=== PATIENT | male | born 1990 | race Two or more races ===

== ENCOUNTER 2021-02-11 14:47 | Emergency (ER) | payer MEDICAID ==
[~2021-02-11] VITALS: Ht 172.7 cm; Wt 92.1 kg
[2021-02-11 14:47] VITALS: BP 140/102
[~2021-02-11 14:47] MED LIST: LEVA15HF4 IH
[2021-02-11] MEDS ORDERED: IPRA3AMP23 IH (15:13)
--- NOTE | 2021-02-11 15:24 | NUR ---
Patient discharged to home in stable condition. Written and verbal after care instructions given. Patient verbalizes understanding of instruction.
== END 2021-02-11 15:24 | disposition home or self-care (01) ==
LOC: ER 14:55
DX: F15.90 Other stimulant use, unspecified, uncomplicated (principal); J45.909 Unspecified asthma, uncomplicated

== ENCOUNTER 2023-08-19 14:59 | Emergency (ER) | payer MEDICAID ==
[~2023-08-19] VITALS: Ht 172.7 cm; Wt 81.6 kg
[~2023-08-19 14:59] MED LIST changes: +IPRA3AMP23 IH
[2023-08-19] MEDS ORDERED: BUPR1FIL SL (16:28)
[2023-08-19] MEDS ORDERED: ONDA4TAB5 PO (16:30)
[2023-08-19] MEDS ORDERED: BUPR1FIL3 SL (16:37)
[2023-08-19 16:54] VITALS: BP 151/97; TEMP 98.1; O2SAT 99
== END 2023-08-19 16:54 | disposition home or self-care (01) ==
LOC: ER 15:09
DX: F11.23 Opioid dependence with withdrawal (principal); Z76.0 Encounter for issue of repeat prescription; J45.909 Unspecified asthma, uncomplicated; Z79.899 Other long term (current) drug therapy

== ENCOUNTER 2023-09-05 10:00 | Emergency (ER) | payer MEDICAID ==
[~2023-09-05] VITALS: Ht 172.7 cm; Wt 81.6 kg
[~2023-09-05 10:00] MED LIST changes: +BUPR1FIL3 SL; +ONDA4TAB5 PO
[2023-09-05 10:16] VITALS: BP 145/65; TEMP 98; O2SAT 98
[2023-09-05] MEDS ORDERED: BUPR1FIL3 SL (10:21)
== END 2023-09-05 10:37 | disposition home or self-care (01) ==
LOC: ER 10:00
DX: J45.909 Unspecified asthma, uncomplicated (principal); Z76.0 Encounter for issue of repeat prescription; Z79.899 Other long term (current) drug therapy

== ENCOUNTER 2023-09-09 08:43 | Emergency (ER) | payer MEDICAID ==
[~2023-09-09] VITALS: Ht 172.7 cm; Wt 81.2 kg
[~2023-09-09 08:43] MED LIST changes: -BUPR1FIL3 SL
[2023-09-09 08:50] VITALS: BP 140/93; TEMP 98.3
[2023-09-09] MEDS ORDERED: BUPR1FIL3 SL (09:21)
[2023-09-09 09:29] VITALS: O2SAT 99
== END 2023-09-09 09:29 | disposition home or self-care (01) ==
LOC: ER 08:48
DX: J45.909 Unspecified asthma, uncomplicated (principal); Z76.0 Encounter for issue of repeat prescription; Z79.899 Other long term (current) drug therapy

== ENCOUNTER 2025-02-04 07:10 | Emergency (ER) | payer MEDICAID ==
[~2025-02-04] VITALS: Ht 175.3 cm; Wt 68.0 kg
[~2025-02-04 07:10] MED LIST changes: +BUPR1FIL3 SL
[2025-02-04 08:08] VITALS: BP 133/70; TEMP 98.2; O2SAT 97
== END 2025-02-04 08:18 | disposition home or self-care (01) ==
LOC: ER 07:14
DX: J45.909 Unspecified asthma, uncomplicated (principal); Z76.0 Encounter for issue of repeat prescription